=== PATIENT | female | born 1950 | race African-American/Black ===

== ENCOUNTER 2016-11-05 15:12 | Emergency (ER) | payer OTHER ==
[2016-11-05 15:26] VITALS: BP 151/76; PULSE 62; TEMP 97.8; BMI 26.5
--- NOTE | 2016-11-05 15:29 | PDOC ---
Rapid Medical Evaluation Time Seen by Provider: 11/05/16 15:13 Medical Evaluation: 11/05/16 15:13 I have performed a brief in-person evaluation of this patient. Ms. Burnham is a 66 yo RHD F with a history of HTN who presents to the ER with a complaint of Right arm pain present for the past week. Describes it as "soreness", rates it 0/10 when she is not moving, 5-7/10 when she is moving her right arm. Pain is in the elbow joint. Never had this before. No chest pain. Did not fall or lift any thing heavy. Pt has not taken anything for pain Pertinent physical exam findings: nml range of motion at the elbow and shoulder No swelling noticeable through pt jacket No deformity PT has pain with palpation of the elbow joint Pain in the shoulder with abduction The patient will proceed to fast track for further evaluation.
[2016-11-05] MEDS ORDERED: IBUPROFEN 400 MG TABLET (FP) PO ONE ×2 (16:40→17:00)
--- NOTE | 2016-11-05 16:50 | PDOC ---
History of Present Illness - General Chief Complaint: Pain Stated Complaint: RT SHOULDER/ARM PAIN Time Seen by Provider: 11/05/16 15:13 History Source: Patient Exam Limitations: No Limitations - History of Present Illness Initial Comments: 11/05/16 16:43 Patient states had onset of pain are symmetric 2 weeks to her shoulder that is progressively gotten worse extending from her elbow to her upper arm. 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 Denies history of trauma, exercise change, or other changes in activity. States does not suffer from osteoarthritis or inflammatory process. Patient has taken no medication for relief of this pain. Patient denies chest pain, palpitations, shortness of breath or cough. Denies any fever, states has hypertensive but is well controlled. Did not discuss this issues with her physician 11/05/16 18:48 Occurred: reports: just prior to arrival Severity: reports: mild, moderate Pain Location: reports: none, upper extremity (RIGHT SHPULDER ) Method of Injury: Yes: unknown Loss of Consciousness: no loss of consciousness Associated Symptoms (Fall): denies symptoms Past History - Travel Traveled outside of the country in the last 30 days: No Close contact w/someone who was outside of country & ill: No - Past Medical History Allergies/Adverse Reactions: Allergies Allergy/AdvReac Type Severity Reaction Status Date / Time No Known Allergies Allergy Verified 11/05/16 15:26 Home Medications: Ambulatory Orders NK [No Known Home Medication] 11/05/16 HTN: Yes - Psycho/Social/Smoking Cessation Hx Anxiety: No Suicidal Ideation: No Smoking History: Never smoked Have you smoked in the past 12 months: No Information on smoking cessation initiated: No Hx Alcohol Use: No Drug/Substance Use Hx: No Substance Use Type: None Trauma Specific PMHX - Complaint Specific PMHX Back Injury: No Neck Injury: No Review of Systems - Review of Systems Able to Perform ROS?: Yes Is the patient limited Salvadorean proficient: Yes Constitutional: Yes: Symptoms Reported, See HPI, Malaise HEENTM: No: Symptoms Reported Respiratory: Yes: Symptoms reported Musculoskeletal: Yes: Symptoms Reported, See HPI, Joint Pain, Joint Swelling. No: Muscle Pain, Muscle Weakness Integumentary: Yes: Symptoms Reported All Other Systems: Reviewed and Negative *Physical Exam - Vital Signs Last Vital Signs Temp Pulse Resp BP Pulse Ox 97.8 F 62 17 151/76 99 11/05/16 15:24 11/05/16 15:24 11/05/16 15:24 11/05/16 15:24 11/05/16 15:24 - Physical Exam General Appearance: Yes: Nourished, Appropriately Dressed, Apparent Distress. No: Mild Distress HEENT: positive: NATALIE. negative: Normal ENT Inspection, TMs Normal Neck: positive: Supple, Lymphadenopathy (R), Lymphadenopathy (L). negative: Tender Respiratory/Chest: positive: Lungs Clear, Normal Breath Sounds Gastrointestinal/Abdominal: positive: Soft. negative: Normal Bowel Sounds Musculoskeletal: positive: Normal Inspection Extremity: positive: Normal Capillary Refill, Normal Inspection (no swelling, redness, deformities noted to shoulder girdle, extending down into hand. Has strong range of motion both flexion and extension at elbow wrist and fingers. Has reproduced tenderness with forward flexion against resistance.), Normal Range of Motion Integumentary: positive: Normal Color, Dry, Warm. 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 Reviewed would take x-ray to help initiate process for possible further studies by orthopedist. Patient states did not wish to have any x-ray testing done and received the ibuprofen. Will continue NSAIDs and follow-up with her private physician if pain persists. Patient did not wish to wait for any further testing or evaluation. *DC/Admit/Observation/Transfer Diagnosis at time of Disposition: Right shoulder strain Qualifiers: Encounter type: initial encounter Qualified Code(s): S46.911A - Strain of unspecified muscle, fascia and tendon at shoulder and upper arm level, right arm , initial encounter - Discharge Dispostion Disposition: HOME Condition at time of disposition: Stable Admit: No - Referrals Referrals: Edy Chaudhry Jr [Primary Care Provider] - - Patient Instructions Additional Instructions: Rest, ice to area on and off for 15 minutes 4-6 times a day Avoid heavy lifting or exercise until pain and swelling is resolved or until further directed Keep area highly elevated to reduce swelling Use splints/Nj wrap as directed Followup with orthopedist in one to 2 days if not improving, if significantly improved may wait one week for followup with orthopedist May use ibuprofen 2-200 mg tablets every 6 hours as needed for pain
== END 2016-11-05 17:44 | disposition home or self-care (01) ==
LOC: JERFT 15:12
DX: S46.911A Strain of unspecified muscle, fascia and tendon at shoulder and upper arm level, right arm, initial encounter (principal); M70.811 Other soft tissue disorders related to use, overuse and pressure, right shoulder; Y93.C1 Activity, computer keyboarding
CPT/HCPCS: 99281-25